=== PATIENT | male | born 1975 | race Caucasian/White ===

== ENCOUNTER 2022-07-09 21:36 | Emergency (ER) | payer OTHER, SELFPAY ==
[2022-07-09 21:57] VITALS: BP 142/97; PULSE 97; RESP 16; TEMP 37; O2SAT 96; BMI 26.6
--- NOTE | 2022-07-09 22:19 | ED_ITS ---
HPI - General Adult General Date Seen: 07/09/22 Chief complaint: Fall/Minor Trauma Stated complaint: MCI Time Seen by Provider: 07/09/22 22:04 Source: patient Mode of arrival: ambulatory Limitations: language barrier History of Present Illness HPI narrative: Patient is a 46-year-old male here with his daughter who is being evaluated by EMS after a deck that they were all standing on collapsed. He fell to his knees when the deck fell, and he noted initially that he had some pain in his shins. While his daughter was 1st being seen, he said he had some tightness in his chest and difficulty breathing, but now that he less worried about her, his symptoms have resolved. He denies any cardiac history, does not have any history of hypertension or diabetes. Dad did have a stent placed at age 77. No history of exertional chest pain. He does not smoke. Related Data Home Medications Medication Instructions Recorded Confirmed allopurinol 300 mg tablet 300 mg PO DAILY 07/09/22 07/09/22 citalopram 10 mg tablet 10 mg PO DAILY 07/09/22 07/09/22 simvastatin 10 mg tablet 10 mg PO DAILY 07/09/22 07/09/22 Allergies Allergy/AdvReac Type Severity Reaction Status Date / Time No Known Drug Allergies Allergy Verified 07/09/22 22:08 Review of Systems Status of ROS: Reports: 10 or more systems reviewed and unremarkable except as noted in History and below PFSH PFS Social History Smoking Status: Never smoker How often do you have a drink containing alcohol: monthly or less AUDIT-C Alcohol total score: 1 Non-prescribed substance use: denies use Exam Const: Vital Signs, click to edit/add: Vital Signs - 24 hr 07/09/22 21:57 Temperature 98.6 F Pulse Rate [Right Pulse Oximeter] 97 Respiratory Rate 16 Blood Pressure [Ri ght Upper Arm] 142/97 H Pulse Oximetry 96 Oxygen Delivery Me thod Room Air Course Course Hospital Course: He had an EKG which by my review showed a sinus tachycardia with a ventricular rate of 101 beats per minute. No acute ST segment changes. I will go ahead and check a troponin. I think likely his symptoms were related to concern for his daughter as they resolved as the stress of the situation resolved. He did not have any injury to his chest during the collapse. He does not have any wheezing or evidence of bronchospasm. His O2 sats are normal and he is not showing signs of respiratory distress. Chest is atraumatic. I do not think a chest x-ray is necessary given the circumstances. First troponin was 0, 2nd troponin 90 minutes later is also negative. He is feeling well, his daughter and have also been seen and are uninjured so he is feeling good about that. I suspect that his symptoms may have just been related to the stress in this situation, nonetheless I would recommend primary care follow-up to determine whether any other workup is needed. Return at any time for recurrent symptoms. Vital Signs Vital signs: Initial Vital Signs Temperature 98.6 F 07/09/22 21:57 Temperature Source Temporal Artery Scan 07/09/22 21:57 Pulse Rate 97 07/09/22 21:57 Pulse Rhythm Regular 07/09/22 21:57 Respiratory Rate 16 07/09/22 21:57 Blood Pressure 142/97 H 07/09/22 21:57 Blood Pressure Mean 112 07/09/22 21:57 Pulse Oximetry 96 07/09/22 21:57 Oxygen Delivery Method Room Air 07/09/22 21:57 Vital Signs Temperature 98.6 F 07/09/22 21:57 Pulse Rate 97 07/09/22 21:57 Respiratory Rate 16 07/09/22 21:57 Blood Pressure 142/97 H 07/09/22 21:57 Pulse Oximetry 96 07/09/22 21:57 Oxygen Delivery Method Room Air 07/09/22 21:57 Temperature 98.6 F 07/09/22 21:57 Pulse Rate 97 07/09/22 21:57 Respiratory Rate 16 07/09/22 21:57 Blood Pressure 142/97 H 07/09/22 21:57 Pulse Oximetry 96 07/09/22 21:57 Oxygen Delivery Method Room Air 07/09/22 21:57 Medical Decision Making Lab Data Labs: Lab Results 07/09/22 07/09/22 Range/Units 22:09 23:12 POC Troponin I 0.00 L 0.01 (0.01-0.04) ng/ml Discharge Plan Discharge Clinical Impression: Chest tightness Patient Disposition: Home, Self-Care Condition: Improved Instructions: Chest Pain (ED) Additional Instructions: Follow-up with primary care to discuss if any further testing is needed. For severe symptoms, recurrent chest pain, return to the ER. Prescriptions: No Action citalopram 10 mg tablet 10 mg PO DAILY simvastatin 10 mg tablet 10 mg PO DAILY allopurinol 300 mg tablet 300 mg PO DAILY Stand Alone Forms: [employer], [employer] Info Instructions
--- NOTE | 2022-07-09 23:12 | ED.NURSE ---
Rounding completed upon shift report. Patient denies any needs at this time. Daughter and friend at bedside.
[2022-07-09 23:34] LABS: Troponin, Point-of-Care* 0.01 ng/ml (0.01-0.04)
== END 2022-07-10 00:22 | disposition home or self-care (01) ==
PROVIDERS: Emergency Provider Emergency Medicine
DX: R07.89 Other chest pain (principal); W17.89XA Other fall from one level to another, initial encounter
CPT/HCPCS: 84484; 93005; 99283; 99284